=== PATIENT | male | born 1980 | race Two or more races ===

== ENCOUNTER 2025-01-19 10:12 | Emergency (ER) | payer MEDICAID ==
[~2025-01-19] VITALS: Ht 177.8 cm; Wt 90.7 kg
[2025-01-19 10:21] VITALS: BP 128/89; TEMP 36.9; O2SAT 99
[2025-01-19 10:24] VITALS: PULSE 88; RESP 18; O2SAT 99
== END 2025-01-19 10:55 | disposition home or self-care (01) ==
LOC: ER 10:12
DX: Z00.8 Encounter for other general examination (principal)
CPT/HCPCS: 99281